=== PATIENT | male | born 1995 | race Caucasian/White ===

== ENCOUNTER 2021-01-12 01:48 | Emergency (ER) | payer OTHER ==
[~2021-01-12] VITALS: Ht 170.2 cm; Wt 95.3 kg
[2021-01-12 01:56] VITALS: BP 118/68
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
[2021-01-12] MEDS ORDERED: CEPH500C2 PO (02:04)
[2021-01-12] MEDS ORDERED: NAPR-1009 PO (02:04)
--- NOTE | 2021-01-12 02:13 | NUR ---
[facility] at bed side for wound care
[2021-01-12] MEDS ORDERED: HYDROCODONE/APAP 10/325MG TABLET ONE (02:14)
[2021-01-12] MEDS ORDERED: TDAP [DIPH/PERTUSSIS/TET] 0.5 ML VIAL IM ONE ×2 (02:14→02:30)
--- NOTE | 2021-01-12 02:18 | NUR ---
[facility] AT BEDSIDE GETTING PATIENT STATMENT
[2021-01-12] MEDS ORDERED: HYDROCODONE/APAP 10/325MG TABLET PO ONE (02:30)
== END 2021-01-12 02:37 | disposition home or self-care (01) ==
LOC: ER 01:50
DX: S51.811A Laceration without foreign body of right forearm, initial encounter (principal); Z79.899 Other long term (current) drug therapy; Z59.0 Homelessness; Y04.8XXA Assault by other bodily force, initial encounter; Y93.89 Activity, other specified; Y92.89 Other specified places as the place of occurrence of the external cause; Y99.8 Other external cause status
CPT/HCPCS: 90715